=== PATIENT | male | born 1995 | race Caucasian/White ===

== ENCOUNTER 2018-04-10 01:37 | Emergency (ER) | payer BC ==
[~2018-04-10] VITALS: Ht 170.2 cm; Wt 127.0 kg
[2018-04-10 02:35] LABS: BASOPHILS # (AUTO) 0.1 (0.0-0.1); BASOPHILS % 0.5 % (0.0-1.0); EOSINOPHILS # (AUTO) 0.4 (0.0-0.4); EOSINOPHILS % 2.1 % (0.0-6.0); HEMATOCRIT 45.4 % (38.2-49.6); HEMOGLOBIN 15.5 g/dL (14.0-18.0); LYMPHOCYTES # (AUTO) 5.3 (1.0-3.2); LYMPHOCYTES % 26.9 % (18.0-39.1); MEAN CORPUSCULAR HEMOGLOBIN 30.3 pg (28-32); MEAN CORPUSCULAR HGB CONC 34.1 g/dL (31-35); MEAN CORPUSCULAR VOLUME 88.8 fL (81-99); MONOCYTES # (AUTO) 1.3 (0.2-0.8); MONOCYTES % 6.3 % (4.4-11.3); NEUTROPHILS # (AUTO) 12.6 (2.1-6.9); NEUTROPHILS % 63.7 % (38.7-80.0); PLATELET COUNT 458 x10e3/uL (140-360); RED BLOOD COUNT 5.11 x10e6/uL (4.3-5.7); RED CELL DISTRIBUTION WIDTH 13.8 % (11.7-14.4)
[2018-04-10 02:54] LABS: ALANINE AMINOTRANSFERASE 16 IU/L (0-55); ALBUMIN 3.7 g/dL (3.5-5.0); ALBUMIN/GLOBULIN RATIO 0.8 (0.8-2.0); ALKALINE PHOSPHATASE 78 IU/L (40-150); ANION GAP 12.5 mmol/L (8-16); BLOOD UREA NITROGEN 14 mg/dL (7-26); BUN/CREATININE RATIO 16 (6-25); CALCIUM 9.7 mg/dL (8.4-10.2); CARBON DIOXIDE 27 mmol/L (22-29); CHLORIDE 104 mmol/L (98-107); CREATINE KINASE 244 IU/L (30-200); CREATININE, SERUM 0.87 mg/dL (0.72-1.25); EST GLOMERULAR FILTRATION RATE > 60 ML/MIN (60-); GLUCOSE 117 mg/dL (74-118); POTASSIUM 3.5 mmol/L (3.5-5.1); SODIUM 140 mmol/L (136-145)
[2018-04-10 03:01] LABS: AMYLASE 69 U/L (25-125); LIPASE 35 U/L (8-78)
[2018-04-10 03:10] LABS: EOSINOPHILS % (MANUAL) 1 % (0-7); LYMPHOCYTES % (MANUAL) 34 % (19-48); MONOCYTES % (MANUAL) 5 % (3.4-9.0); NEUTROPHILS % (MANUAL) 60 % (40-74); PLATELET ESTIMATE SLIGHTLY INCREASED; PLATELET MORPHOLOGY COMMENT NORMAL; RBC MORPHOLOGY COMMENT NORMAL
[2018-04-10] MEDS ORDERED: KETOROLAC TROMETHAMINE 30 MG/ML VIAL IV STA (03:42)
--- NOTE | 2018-04-10 04:11 | Diagnostic Imaging Report ---
EXAMINATION: CHEST 2 VIEWS INDICATION: Right-sided chest pain. COMPARISON: None FINDINGS: TUBES and LINES: None. LUNGS: Lungs are not well inflated. Lungs are clear. There is no evidence of pneumonia or pulmonary edema. PLEURA: No pleural effusion or pneumothorax. HEART AND MEDIASTINUM: The cardiomediastinal silhouette is unremarkable. BONES AND SOFT TISSUES: No acute osseous lesion. Soft tissues are unremarkable. UPPER ABDOMEN: No free air under the diaphragm. IMPRESSION: No acute thoracic abnormality. Signed by: Dr. Jan Balbuena M.D. on 04/10/2018 4:07 AM
--- NOTE | 2018-04-10 05:01 | Diagnostic Imaging Report ---
EXAM: Right Upper Quadrant Ultrasound INDICATION: Right upper quadrant pain. COMPARISON: None. TECHNIQUE: Transverse and longitudinal images of the right upper abdomen were obtained. FINDINGS: Liver: Size: 16 cm in the right midclavicular line, large Appearance: Normal echogenicity, smooth contour Mass: No focal masses Gallbladder: Stones/Sludge: None Wall: 0.2 cm Appearance: No wall thickening, pericholecystic fluid or hydrops. Sonographic Harrison's Sign: Negative Bile Ducts: Intrahepatic Ducts: No dilatation Extrahepatic Ducts: Common bile duct measures 0.2 cm, no dilatation Pancreas: Incompletely visualized due to overlying bowel gas, but no abnormality identified involving the visualized portions of the pancreas. Kidneys: Length: Right 10.2 cm Echogenicity: Normal Collecting System: No hydronephrosis Stone: None Cyst/Mass: None Vessels: Aorta: Visualized portions are normal. The aorta measures 1.4 cm at the level of the renal arteries. Inferior Vena Cava: Visualized portions are normal Main Portal Vein: 1.0 cm, normal size with hepatopetal flow. Free Fluid: No ascites or pleural effusion IMPRESSION: Mild hepatomegaly. Otherwise, unremarkable right upper quadrant ultrasound Signed by: Dr. Jan Balbuena M.D. on 04/10/2018 4:58 AM
[2018-04-10 05:29] VITALS: BP 139/97
== END 2018-04-10 05:38 | disposition home or self-care (01) ==
LOC: ER 01:37
DX: R09.1 Pleurisy (principal); F41.9 Anxiety disorder, unspecified
CPT/HCPCS: 36415; 71046; 76705; 80053; 82150; 82550; 82553; 83690; 84484; 85025; 93005; 96374; 99283; J1885